=== PATIENT | male | born 1950 | race Caucasian/White ===

== ENCOUNTER 2018-01-13 10:49 | Outpatient (CLI) | payer MEDICARE, OTHER ==
[2018-01-13] MEDS ORDERED: IOPAMIDOL-300 100 ML VIAL ONE (11:03)
[2018-01-13] MEDS ORDERED: IOPAMIDOL-300 100 ML VIAL IVP ONE (11:31)
--- NOTE | 2018-01-13 12:34 | CT Report ---
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 CLINICAL HISTORY: Malignant neoplasm of lateral wall of urinary bladder. COMPARISONS: None. TECHNIQUE: Routine helical imaging was performed through the kidneys, ureters and bladder in the precontrast, postcontrast and delayed phase. IV Contrast: ISOVUE 300 100mL. Reconstructions: Coronal and sagittal. Additional prone imaging was obtained of the pelvis delayed. In accordance with CT protocol optimization, one or more of the following dose reduction techniques were utilized for this exam: automated exposure control, adjustment of mA and/or KV based on patient size, or use of iterative reconstructive technique. FINDINGS: Lung Bases: Unremarkable. Right Kidney/Ureter: No stones, hydronephrosis, or masses. Bilateral parapelvic cysts are present, incidentally noted. Left Kidney/Ureter: No stones, hydronephrosis, or masses. Other Solid Organs: The liver, spleen, pancreas, gallbladder, and adrenal glands are unremarkable.The bile ducts are unremarkable. Peritoneal Cavity/Bowel: Normal. No free fluid, free air or adenopathy. No masses. Bowel loops are unremarkable. Pelvic Organs: No bladder stones, obstruction or masses. There is no appreciable mass or thickening of the urinary bladder wall. There is enlargement of the prostate. Seminal vesicles are within normal limits. Vasculature: Normal. Bones: Focal hyperdensities are noted in both innominate bones, 2 on the left, one on the right favoring incidental bone islands. Other: None. IMPRESSION: Normal CT IVP. No urinary tract masses, stones or obstruction. [facility]
== END 2018-01-13 10:50 | disposition home or self-care (01) ==
LOC: DI 10:49
PROVIDERS: ATTEND Urology
DX: C67.2 Malignant neoplasm of lateral wall of bladder (principal)
CPT/HCPCS: 74178; Q9967

== ENCOUNTER 2022-05-31 16:53 | Emergency (ER) | payer MEDICARE, OTHER ==
[2022-05-31 17:18] VITALS: BP 139/66
== END 2022-05-31 18:20 | disposition left against medical advice (07) ==
LOC: ED 16:53
DX: Z53.21 Procedure and treatment not carried out due to patient leaving prior to being seen by health care provider (principal)